=== PATIENT | male | born 1935 | race Caucasian/White ===

== ENCOUNTER 2021-02-14 16:49 | Emergency (ER) | payer MEDICARE, SELFPAY ==
[2021-02-14 17:01] VITALS: BP 127/77; PULSE 73; RESP 18; TEMP 36.8; O2SAT 94
[2021-02-14 17:15] VITALS: RESP 17
--- NOTE | 2021-02-14 17:41 | ED.GENADUL_ITS ---
Discharge Plan Disposition Patient Disposition: HOME Condition: Stable Discharge Details Clinical Impression: Peripheral vascular disease, Femoral artery occlusion Primary Care Provider: Shona,Local ED Provider: Nicole Dong Home Meds and New Rx's Prescriptions: Continued atorvastatin 40 mg Tablet 40 mg PO HS RF: 0 aspirin 81 mg Tablet,Delayed Release (Dr/Ec) 81 mg PO DAILY RF: 0 famotidine 20 mg Tablet 20 mg PO DAILY RF: 0 metoprolol succinate 50 mg Capsule,Sprinkle,Er 24hr 50 mg PO DAILY RF: 0 Discharge Instructions Instructions: Peripheral Vascular Disease (ED) Additional Instructions: You have significant vascular disease to both of your lower extremities. However, your left is symptomatic. Vascular surgery at the [facility] in [place] will see you in the next 2 days. In the mean time, please encourage elevation and rest. Please return immediately if you develop pain, sensation changes, weakness or other new/worsening symptoms. Please call the [facility] tomorrow to schedule prompt follow up appointment [phone]. Referrals: [facility] [Outside] Discharge Data Discharge Date/Time-TO BE ENTERED AT DEPARTURE: 02/14/21 22:05 Medical Decision Making <PHOENIX Dykes - Last Filed: 02/14/21 22:35> Patient is a pleasant 85 year old male, accompanied by , with c/c of LLE claudication. He reports that he has been noticing this only with exercise over the past several days. STates that he has been increasing his daily exercise at the advisement of his surgeon in preparation for hernia repair. Patient has known vascular disease. He has had bilateral carotid endarderectomies, a aortobifem graft, and vascular stenting of the LLE. Last vascular surgery was in 2014. He states that he feels similar to when he had stenting of the LLE. No pain currently when at rest. His discomfort completely resided 5-10mins after cessation of exercise. Indicates lower calf as area of discomfort when he does have his exertionally induced discomfort. Denies SOB, CP. He states that he contacted his surgeon who advised he come here for evaluation. Patients previous vascular care has been completed in [place]. Reside here perminently now d/t COVID. On exaluation, patient appears nontoxic. Stable VS. He has no palpable pulses in BLE. Intact capillary refill bilaterally. No discoloration. Left toes are slightly cooler than right. No swelling. No erythema. No pain with palpation. Negative Hommans sign. We do not have US available at this time. Will obtain ABIs. Unable to doppler pulse in LLE. Faint posterior tibial with doppler on right but no dorsalis pedis. Unable to get ROMAIN with this. I do not see emergent pathology at this time. Known vasculopath. Concern for chronic disease that is likely worsening with his progressing claudication symptoms. Will reach out to [facility] to speak with oncall vascular surgeon regarding these concerns. Consulted with Dr. Robison with [facility]. We discussed history, exam. He reviewed his previous notes that are available for him. He will consult with vascular attending, Dr. Clemens, and call back. He consulted with Dr. Clemens, the vascular attending at the [facility]. He advised transfer to a different facility for vascular intervention as toes are cool and there is no dopplerable pulses. [facility] [place]. Will consult with their vascular surgery team. Have requested consultation with vascular surgery. Consulted with Dr. Felder at vascular surgery. He recommended CTA. Advised he will look at the images and go from there. CTA aorta and bilateral run off. Will obtain CTA and baseline labs. Labs reviewed. No leukocytosis. Stable H&H. Coags normal. Creatinine elevated at 1.4 which is baseline for hte patient. GFR 48. Images pushed to [facility] Felder reviewed the imaging. He advised good flow to femoral. Profunda is open bilateral. Stents appear occluded. Unable to say when this occurred. Right leg appears the exact same. He has contrast into the foot. He advised that if claudication is his only symptom, patient safe for d/c to home with prompt f/u. He advised if patient started to have sensory deficits, motor deficits, pain at rest, he should be seen emergently. They are unable unable to accept the patient secondary to beds as well. He advised that if movement and sensation is intact, clinic follow up is appropriate at this time. He advised that if patient wanted to be seen emergently, could consider appointment with [facility]. [facility]2 days. FINDINGS: Aorta: Mural thrombus in infrarenal abdominal aorta is approximately 50% occlusive. Celiac trunk and mesenteric arteries: Mild stenosis of the superior mesenteric artery origin. No stenosis of the celiac artery origin. Renal arteries: Moderate right and severe left renal artery origin stenosis. Right iliac arteries: Complete occlusion of the [place] right common iliac artery. Retrograde reconstitution of the right internal iliac artery. Right aortofemoral bypass graft is patent. Right femoral/popliteal arteries: Right deep femoral artery is patent. There is moderate stenosis at its origin. Complete occlusion of the proximal right superficial femoral artery. Right infrapopliteal arteries: Minimal reconstitution of the trifurcation vessels with no significant runoff below the mid calf. Left iliac arteries: Occlusion of the [place] left common iliac artery. Retrograde reconstitution of the left internal iliac artery. Aortofemoral bypass graft is patent with mild distal stenosis. Left femoral/popliteal arteries: Moderate stenosis of the left deep femoral artery origin. Complete occlusion of the proximal left superficial femoral artery. Left infrapopliteal arteries: There is minimal reconstitution of the trifurcation vessels with faint peroneal continuation to the ankle. Inferior vena cava: IVC filter in place. Lungs: Dependent subsegmental atelectasis in the right lung base. Liver: No mass. Gallbladder and bile ducts: Gallbladder is contracted. Gallbladder neck calcifications. No pericholecystic fluid. Pancreas: Unremarkable. No mass. No ductal dilation. Spleen: Normal. No splenomegaly. Adrenals: Normal. No mass. Kidneys and ureters: Marked bilateral renal atrophy. Left renal cortical exophytic hypodensity, likely a benign cyst. No urolithiasis or hydroureteronephrosis. Stomach and bowel: Infraumbilical ventral hernia contains 2 loops of small bowel. No evidence of strangulation or obstruction. Scattered colonic diverticula. No evidence of acute diverticulitis. Stomach is unremarkable. Appendix: No evidence of appendicitis. Bladder: Unremarkable. No mass. Reproductive: Unremarkable as visualized. Intraperitoneal space: Unremarkable. No free air. No significant fluid collection. Lymph nodes: No lymphadenopathy. Bones/joints: Prior right knee total arthroplasty. Mild to moderate bilateral hip joint degenerative disease. Multilevel lumbar spondylosis. Soft tissues: Small fat filled right inguinal hernia. IMPRESSION: 1. 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 2. Moderate right and severe left renal artery origin stenosis. 3. Moderate stenosis of the distal aorta. 4. Occlusion of bilateral proximal superficial femoral arteries. Minimal bilateral trifurcation constitution with single-vessel runoff to the left ankle and no runoff on the right below the mid calf. 5. Bilateral aortofemoral bypass grafts are patent. 6. Infraumbilical ventral hernia containing 2 loops of small bowel. No strangulation or obstruction. 7. Cholelithiasis and gallbladder contraction. No evidence of acute cholecystitis. 8. Bilateral renal atrophy and left renal benign cyst. No further imaging required. Discussed these recommendations with the patient, his and daughter. Daughter on phone, she is HH nurse. Discussed treatment options. Discussed possible transfer to [facility] in [place]. They would prefer to be d/c'ed to home with [facility]. They will call vascular office in the AM. Strict return precautions discussed. Patient continues to deny sensory deficit, motor deficit, pain at rest. All of their questions and concerns were addressed, they are in agreement with this plan. <Marco Antonio Meza MD - Last Filed: 03/01/21 11:27> Patient seen, examined, and discussed with PHOENIX Dong. I agree with treatment plan as discussed/documented. HPI <PHOENIX Dykes - Last Filed: 02/14/21 22:35> General Mode of arrival: wheelchair . Date/Time Provider Initiated Documentation: 02/14/21 16:49 . Limitations to Documentation: no limitations . Information obtained by: patient, family () and RN notes reviewed . History of Present Illness 85 year old M presents to the emergency department with the chief complaint of left leg pain, described as mild, with intensity rated at 3. Quality is described as aching, and is localized to the left and lower extremity. Patient reports no radiation. Patient started experiencing this day(s) and it has been intermittent and now resolved. Immobilization improves symptom(s), Movement worsens symptoms (prolonged walking with exercise regimen) . Patient notes no other symptoms.. Patient did receive the following treatments prior to arrival, none Related Data Home Medications Medication Instructions Recorded Confirmed aspirin 81 mg PO DAILY 02/14/21 02/14/21 atorvastatin 40 mg PO HS 02/14/21 02/14/21 famotidine 20 mg PO DAILY 02/14/21 02/14/21 metoprolol succinate 50 mg PO DAILY 02/14/21 02/14/21 Allergies Allergy/AdvReac Type Severity Reaction Status Date / Time Latex, Natural Rubber Allergy Unverified 02/14/21 17:07 simvastatin [From Zocor] AdvReac Unverified 02/14/21 17:07 General Stated Complaint: Vascular GUERITA: 3 Review of Systems <PHOENIX Dykes - Last Filed: 02/14/21 22:35> Constitutional Constitutional: Reports as per HPI, Denies chills, Denies fever(s), Denies lethargy and Denies poor appetite ENT Ears, Nose, Mouth, and Throat: Denies dizziness Cardiovascular Cardiovascular: Reports as per HPI, Denies chest pain, Denies chest pain with activity, Denies dyspnea and Denies dyspnea on exertion Respiratory Respiratory: Reports as per HPI, Denies chest congestion, Denies cough, Denies pain on inspiration, Denies pain with cough, Denies dyspnea, Denies dyspnea on exertion and Denies wheezing Musculoskeletal Musculoskeletal: Reports as per HPI Integumentary/Breasts Skin/Breast: Reports as per HPI and Denies rash Neurologic Neurologic: Reports as per HPI and Denies dizziness Allergic/Immunologic Allergic/Immunologic: Denies wheezing PFSH <PHOENIX Dykes - Last Filed: 02/14/21 22:35> Social History Smoking/Tobacco Use Status: Former Tobacco Use Smoking risk assessment performed?: Yes Alcohol Intake: current Alcohol Intake frequency: a few times a week Alcohol type: hard liquor Drug use: Never Substance use type: does not use Do you feel safe at home: Yes Do you feel safe in your relationship?: Yes Exam <PHOENIX Dykes - Last Filed: 02/14/21 22:35> Const General: cooperative, healthy appearing, comfortable, no acute distress and well developed Nutritional Appearance: average body habitus and well nourished Orientation: alert, awake and oriented x3 HENMT Ears: hearing grossly abnormal bilaterally (patient [place]O [place]) Resp Effort & Inspection: normal respiratory effort, able to speak in complete sentences and no respiratory distress Auscultation: clear to auscultation bilaterally, no rales, no rhonchi and no wheezes Cardio Rate: regular rate Rhythm: regular rhythm Heart Sounds: S1 normal and S2 normal GI Inspection: other (belt on for hernia support) Skin General skin exam: no rashes or lesions noted Trauma: no lacerations or abrasions Neuro General: patient alert, patient awake and patient oriented x3 Cognition: normal cognition Speech: speech normal Gait: normal gait Extrem General: normal to inspection, capillary refill normal, no pedal edema, no calf tenderness, normal gait and other (unable to palpate bilateral pulses. Left toes slightly cooler than right.) Psych Appearance: grossly normal and well kempt Mental Status: mental status grossly normal Speech and Movement: speech and movement normal Course <PHOENIX Dykes - Last Filed: 02/14/21 22:35> Vital Signs Vital signs: Vital Signs Temperature 36.8 C 02/14/21 17:01 Pulse 73 02/14/21 17:01 Respiratory Rate 18 02/14/21 17:01 Blood Pressure 127/77 02/14/21 17:01 Pulse Oximetry 94 02/14/21 17:01 Temperature 36.8 C 02/14/21 17:01 Temperature Source Temporal Artery Scan 02/14/21 17:01 Pulse 73 02/14/21 17:01 Respiratory Rate 17 02/14/21 17:15 Respiratory Effort 02/14/21 17:15 Respiratory Depth Normal 02/14/21 17:15 Respiratory Pattern Normal 02/14/21 17:15 Blood Pressure 127/77 02/14/21 17:01 Blood Pressure Position Supine 02/14/21 17:01 Pulse Oximetry 94 02/14/21 17:01 Oxygen Delivery Method Room Air 02/14/21 17:01 Oxygen Flow Rate 0 02/14/21 17:01 Pain Level 0 02/14/21 17:15 Comment 02/14/21 17:01
--- NOTE | 2021-02-14 19:15 | DI.CT_ITS ---
Exam(s) CT ABD AORTA CTA W RUNOFF EXAM: CT ABD AORTA CTA W RUNOFF CLINICAL HISTORY: no pulses LLE, claudication. TECHNIQUE: Imaging Protocol: Axial CT angiography was performed with multi-slice acquisition and mu lti-planar and/or 3D reconstructions. CONTRAST MATERIAL: Intravenous: Omnipaque 350 Contrast volume:125 mL Oral: No COMPARISON: No exams were available for comparison FINDINGS: Vascular Structures: Abdomen: Celiac Stanley/SMA: Atherosclerosis but no significant stenosis and no occlusion. Renal Arteries: No significant stenosis or occlusion. There is atherosclerosis at the origin of the right renal artery. This causes mild to moderate stenosis. Aorta: There is a 3.4 x 2.9 cm infrarenal abdominal aortic aneurysm. There is mural thrombus causin g approximately 50 percent occlusion. There is an aortobifemoral bypass graft which is patent. No d issection. Pelvis: Iliac Arteries: There is occlusion of the [place] common iliac arteries bilaterally. There is occlus ion of the [place] right external iliac artery. There is atherosclerosis of the [place] iliac arteries bilaterally. There is reconstitution of both internal iliac arteries. Common Femoral Arteries: No evidence of stenosis. Lower extremities: Right: Common Femoral: There is atherosclerosis bilaterally causing moderate stenosis of the origins of bot h deep femoral arteries. Superficial Femoral: There is complete occlusion of the right superficial femoral artery. Popliteal: There is complete occlusion of the right popliteal artery. Knee Trifurcation: There is mild reconstitution of the trifurcation below the knee. Some flow is se en within the anterior tibial artery. There also appears to be some flow within the peroneal artery. No demonstrable flow is seen at the level of the ankles. Left: Common Femoral: Atherosclerosis is seen at the origin causing moderate stenosis. Superficial Femoral: There is complete occlusion of the left superficial femoral artery. Popliteal: Occlusion of the right popliteal artery. Knee Trifurcation: There is some reconstitution of the trifurcation below the knee. There is some f low seen in the peroneal artery for short distance. No demonstrable flow is seen at the level of the ankles. ABDOMEN: Lung bases: Dependent atelectasis. Mild coronary artery calcification. Liver: Normal density. No measurable mass. Portal, Superior Mesenteric, and Splenic Veins: Unremarkable. Gallbladder and Biliary Tract: Cholelithiasis. No biliary ductal dilatation. Pancreas: Normal density, no abnormal calcifications or inflammatory process. Spleen: Normal. Adrenals: No masses seen. Kidneys: Normal size, contour and axis. No radiodense stones or obstructive uropathy. Hypodensity in the left kidney, likely reflecting a small cyst. Abdominal Aorta: There is a 3.4 x 2.9 cm infrarenal abdominal aortic aneurysm. There is an aortobife moral bypass graft which is patent. There is occlusion of the [place] common iliac arteries bilateral ly and the right external iliac artery. Bowel: No obstruction or bowel wall thickening. No evidence of appendicitis. There is a large midlin e anterior abdominal wall hernia containing a large amount of small bowel. There is no evidence of o bstruction or strangulation of the bowel. Peritoneal Cavity: No ascites, collection or mesenteric inflammatory response. No free air. Lymph Nodes: Within normal limits. IVC: There is an IVC filter in place. Bones: Within normal limits. Soft Tissues: There is a fat containing right inguinal hernia. PELVIS: Bladder: Symmetric distention, no gross wall thickening. Reproductive Organs: Mildly enlarged prostate gland. Lymph Nodes: Within normal limits. Bones: Within normal limits. IMPRESSION: 1. Significant atherosclerosis. 2. No demonstrable arterial flow at the level of the ankles in either lower extremity. 3. 3.4 x 2.9 cm infrarenal abdominal aortic aneurysm. Mural thrombus causes 50 percent occlusion of the aneurysm. 4. Occlusion of the superficial femoral arteries bilaterally. Occlusion of the popliteal arteries bi laterally. Reconstitution of the trifurcation below the knees bilaterally. No demonstrable arterial flow at the level of the ankles in either lower extremity. 5. Aortobifemoral bypass grafts are patent. RADIATION DOSE DELIVERED: 1,985.6mGy.cm Total DLP DATA REPOSITORY: All CT scans at this facility are submitted to the National Radiology Data Registry (NRDR) Dose Index Registry (DIR) with the [employer] (ACR). RADIATION OPTIMIZATION: All CT scans at this facility use at least one of these dose optimization te chniques: automated exposure control; mA and/or kV adjustment per patient size (includes targeted exa ms where dose is matched to clinical indication); or iterative reconstruction.
[2021-02-14 19:46] LABS: Abs Immature Grans 0.03 10^3/uL (0.0-0.06); Absolute Basophil Count 0.04 10^3/uL (0.0-0.2); Absolute Eosinophil Count 0.51 10^3/uL (0.0-0.7); Absolute Lymphocyte Count 3.47 10^3/uL (1.2-3.4); Absolute Monocyte Count 0.66 10^3/uL (0.1-0.8); Basophils % 0.4; Eosinophils % 5.3; HCT 44.8 % (40.0-50.0); HGB 14.3 g/dL (13.5-17.5); Immature Grans % 0.3; Lymphocytes % 36.1; MCH 30.3 pg (27.0-33.0); MCHC 31.9 % (32.0-36.0); MCV 94.9 fL (80-95); MPV 10.2 fL (8.0-11.0); Monocytes % 6.9; Nucleated RBC 0 %; Platelet Count 186 10^3/uL (130-400); RBC 4.72 10^6/uL (4.36-5.78); RDW 13.5 % (11.8-14.1); RDW-SD 47.7 fL; WBC 9.61 10^3/uL (4.4-10.8)
[2021-02-14 19:57] LABS: Magnesium 1.8 mg/dL (1.8-2.4)
[2021-02-14 20:00] LABS: PTT Activated 23.3 sec (21.0-27.5); Prothrombin Time 10.5 sec (9.3-11.0)
[2021-02-14 20:01] LABS: ALT 40 U/L (16-63); AST 22 U/L (15-37); Albumin 3.3 g/dL (3.4-5.0); Alkaline Phosphatase 140 U/L (46-116); BUN 17 mg/dL (7-18); Bilirubin, Total 0.4 mg/dL (0.2-1.0); CREATININE 1.4 mg/dL (0.70-1.30); Calcium 8.9 mg/dL (8.5-10.1); Chloride 107 mmol/L (98-107); Glucose 105 mg/dL (74-106); Potassium 4.4 mmol/L (3.5-5.1); Sodium 142 mmol/L (136-145); Total Protein 7.3 g/dL (6.4-8.2)
[2021-02-14] MEDS: Omnipaque 350 MG/ML 100 ML BTL IJ (20:31)
[2021-02-14] MEDS: Omnipaque 350 MG/ML 50 ML BTL IJ (20:32)
[2021-02-14] MEDS: Normal Saline 1,000 ML 500 ML IV (21:11)
--- NOTE | 2021-02-14 21:26 | DI.VRAD_ITS ---
PROCEDURE INFORMATION: Exam: CTA Angiogram of the Abdominal Aorta and Bilateral Lower Extremities (Run-off) With IV Contrast Exam date and time: 02/14/2021 7:30 PM Age: 85 years old Clinical indication: Other: No pulses lle, claudication TECHNIQUE: Imaging protocol: CT angiogram of the abdominal aorta, pelvis and bilateral lower extremities with IV iodinated contrast. 3D rendering (Not supervised by radiologist): MIP and/or 3D reconstructed images were created by the technologist. COMPARISON: No relevant prior studies available. FINDINGS: Aorta: Mural thrombus in infrarenal abdominal aorta is approximately 50% occlusive. Celiac trunk and mesenteric arteries: Mild stenosis of the superior mesenteric artery origin. No stenosis of the celiac artery origin. Renal arteries: Moderate right and severe left renal artery origin stenosis. Right iliac arteries: Complete occlusion of the [place] right common iliac artery. Retrograde reconstitution of the right internal iliac artery. Right aortofemoral bypass graft is patent. Right femoral/popliteal arteries: Right deep femoral artery is patent. There is moderate stenosis at its origin. Complete occlusion of the proximal right superficial femoral artery. Right infrapopliteal arteries: Minimal reconstitution of the trifurcation vessels with no significant runoff below the mid calf. Left iliac arteries: Occlusion of the [place] left common iliac artery. Retrograde reconstitution of the left internal iliac artery. Aortofemoral bypass graft is patent with mild distal stenosis. Left femoral/popliteal arteries: Moderate stenosis of the left deep femoral artery origin. Complete occlusion of the proximal left superficial femoral artery. Left infrapopliteal arteries: There is minimal reconstitution of the trifurcation vessels with faint peroneal continuation to the ankle. Inferior vena cava: IVC filter in place. Lungs: Dependent subsegmental atelectasis in the right lung base. Liver: No mass. Gallbladder and bile ducts: Gallbladder is contracted. Gallbladder neck calcifications. No pericholecystic fluid. Pancreas: Unremarkable. No mass. No ductal dilation. Spleen: Normal. No splenomegaly. Adrenals: Normal. No mass. Kidneys and ureters: Marked bilateral renal atrophy. Left renal cortical exophytic hypodensity, likely a benign cyst. No urolithiasis or hydroureteronephrosis. Stomach and bowel: Infraumbilical ventral hernia contains 2 loops of small bowel. No evidence of strangulation or obstruction. Scattered colonic diverticula. No evidence of acute diverticulitis. Stomach is unremarkable. Appendix: No evidence of appendicitis. Bladder: Unremarkable. No mass. Reproductive: Unremarkable as visualized. Intraperitoneal space: Unremarkable. No free air. No significant fluid collection. Lymph nodes: No lymphadenopathy. Bones/joints: Prior right knee total arthroplasty. Mild to moderate bilateral hip joint degenerative disease. Multilevel lumbar spondylosis. Soft tissues: Small fat filled right inguinal hernia. IMPRESSION: 1. 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 2. Moderate right and severe left renal artery origin stenosis. 3. Moderate stenosis of the distal aorta. 4. Occlusion of bilateral proximal superficial femoral arteries. Minimal bilateral trifurcation constitution with single-vessel runoff to the left ankle and no runoff on the right below the mid calf. 5. Bilateral aortofemoral bypass grafts are patent. 6. Infraumbilical ventral hernia containing 2 loops of small bowel. No strangulation or obstruction. 7. Cholelithiasis and gallbladder contraction. No evidence of acute cholecystitis. 8. Bilateral renal atrophy and left renal benign cyst. No further imaging required. Dictated and Authenticated by: Zach Gonzales MD. Ordering:POOL Rivera MD
== END 2021-02-14 22:05 | disposition home or self-care (01) ==
PROVIDERS: Emergency Provider Physician Assistant
DX: I70.212 Atherosclerosis of native arteries of extremities with intermittent claudication, left leg (principal); I73.9 Peripheral vascular disease, unspecified; Z95.828 Presence of other vascular implants and grafts
CPT/HCPCS: 36415; 75635; 80053; 96360; 99285; 83735; 85025; 85610; 85730; J3490; Q9967

== ENCOUNTER 2021-05-07 11:54 | Outpatient (REF) | payer MEDICARE, SELFPAY ==
[2021-05-07 13:40] LABS: Abs Immature Grans 0.02 10^3/uL (0.0-0.06); Absolute Basophil Count 0.04 10^3/uL (0.0-0.2); Absolute Eosinophil Count 0.24 10^3/uL (0.0-0.7); Absolute Monocyte Count 0.57 10^3/uL (0.1-0.8); Absolute Neutrophil Count 6.76 10^3/uL (1.2-6.7); Basophils % 0.4; Eosinophils % 2.6; HCT 45.9 % (40.0-50.0); HGB 14.4 g/dL (13.5-17.5); Immature Grans % 0.2; Lymphocytes % 18.2; MCH 29.9 pg (27.0-33.0); MCHC 31.4 % (32.0-36.0); MCV 95.2 fL (80-95); MPV 10.7 fL (8.0-11.0); Monocytes % 6.1; Neutrophils % 72.5; Nucleated RBC 0 %; Platelet Count 241 10^3/uL (130-400); RBC 4.82 10^6/uL (4.36-5.78); RDW 13.1 % (11.8-14.1); RDW-SD 46.1 fL; WBC 9.33 10^3/uL (4.4-10.8)
[2021-05-07 13:55] LABS: ALT 29 U/L (16-63); AST 26 U/L (15-37); Albumin 3.7 g/dL (3.4-5.0); Alkaline Phosphatase 152 U/L (46-116); Anion Gap 8.9 mmol/L (3-11); BUN 19 mg/dL (7-18); Bilirubin, Total 0.5 mg/dL (0.2-1.0); CO2 28.1 mmol/L (21.0-32.0); CREATININE 1.7 mg/dL (0.70-1.30); Calcium 9.2 mg/dL (8.5-10.1); Chloride 103 mmol/L (98-107); Estimated GFR 38.68 (mL/min/1.73m2); Glucose 114 mg/dL (74-106); Potassium 5.3 mmol/L (3.5-5.1); Sodium 140 mmol/L (136-145); Total Protein 7.9 g/dL (6.4-8.2)
== END 2021-05-07 11:55 | disposition home or self-care (01) ==
LOC: LBN 11:54
PROVIDERS: Visit Provider Family Medicine
DX: I10 Essential (primary) hypertension (principal); I73.9 Peripheral vascular disease, unspecified
CPT/HCPCS: 80053; 85025